=== PATIENT | male | born 1945 | race African-American/Black ===

== ENCOUNTER 2016-03-18 15:05 | Inpatient (IN) | payer MEDICARE, OTHER ==
[~2016-03-18] VITALS: Ht 165.1 cm; Wt 134.1 kg
[~2016-03-18 15:05] MED LIST: ACTOS 45MG45 MG/TAB PO; AMARYL4 MG PO; ANUSOL-HC SUPPO25 MG RC; ASPI325T6 PO; ASPIRIN E.C. 8181 MG PO; CIALIS20 MG PO; FERROUS SU325 MG/TAB PO; FIBERCON PO; FOLIC ACID 40400 MCG PO; HCTZ 25MG TAB25 MG PO; JANUVIA 100MG100 MG PO; LANTUS SOLOS100 U/ML SQ; LIPITOR 40MG TA40 MG PO; LYRICA 100MG C100 M1 PO; MULTIVITAMIN PO; NEXIUM 40MG40 MG PO; NORCO 325 MG-7.1 TAB PO; PRECOSE50 MG; SENOKOT S 50 MG1 TAB PO; VICTOZA6 MG/ML SC; VITAMIN C500 MG PO; XALATAN EYE DROPS OU; ZESTRIL40 MG PO
[2016-06-07] VITALS (12 sets, daily range): BP systolic 99–137; BP diastolic 51–82; PULSE 74–90; TEMP 97.5–98.5
[2016-06-08 00:20] VITALS: BP 104/50; PULSE 64; TEMP 98.2
[2016-06-08 03:53] VITALS: BP 123/48; PULSE 63; TEMP 98.2
[2016-06-08 07:13] LABS: HEMATOCRIT 32.2 % (42.0-52.0); HEMOGLOBIN 10.4 g/dl (13.5-18.0)
[2016-06-08 07:46] VITALS: BP 124/50; PULSE 100; TEMP 99.3
[2016-06-08 11:29] VITALS: BP 141/69; PULSE 98; TEMP 98.2
[2016-06-08 15:53] VITALS: BP 108/66; PULSE 92; TEMP 98.2
[2016-06-08 19:49] VITALS: BP 112/50; PULSE 89; TEMP 98.4
[2016-06-09 00:08] VITALS: BP 131/71; PULSE 98; TEMP 98.6
[2016-06-09 04:22] VITALS: BP 152/81; PULSE 105; TEMP 99
[2016-06-09 06:47] LABS: HEMATOCRIT 32.7 % (42.0-52.0); HEMOGLOBIN 10.5 g/dl (13.5-18.0)
[2016-06-09 07:42] VITALS: BP 127/63; PULSE 95; TEMP 98.1
[2016-06-09 12:09] VITALS: BP 123/65; PULSE 102; TEMP 98
[2016-06-09 16:03] VITALS: BP 112/68; PULSE 90; TEMP 98.9
[2016-06-09 19:37] VITALS: BP 119/49; PULSE 64; TEMP 98.2
[2016-06-10 00:27] VITALS: BP 126/54; PULSE 72; TEMP 98
[2016-06-10 04:30] VITALS: BP 108/60; PULSE 70; TEMP 98.2
[2016-06-10] MEDS ORDERED: NORCO 325 MG-7.1 TAB PO (06:56)
[2016-06-10] MEDS ORDERED: TYLENOL 500MG500 MG PO (06:57)
[2016-06-10] MEDS ORDERED: COLACE 100100 MG/CAP PO (06:59)
[2016-06-10 07:36] VITALS: BP 123/53; PULSE 97; TEMP 98.4
[2016-06-10 08:02] LABS: HEMATOCRIT 30.6 % (42.0-52.0)
[2016-06-10 11:24] VITALS: BP 100/54; PULSE 95; TEMP 97
== END 2016-06-10 14:30 | disposition home or self-care (01) | DRG 470 ==
LOC: INPTSU 06-07 07:00 → JCC 06-07 07:24
PROVIDERS: Orthopaedic Surgery
PROC: 0SRD0J9 Replacement of Left Knee Joint with Synthetic Substitute, Cemented, Open Approach (ICD-10-PCS; principal; 2016-06-07 09:00)
DX: M17.12 Unilateral primary osteoarthritis, left knee (principal); E11.9 Type 2 diabetes mellitus without complications; I10 Essential (primary) hypertension
CPT/HCPCS: A4315; A9284; C1713; C1776; J2250; J2405; J2704; J3010; J7030

== ENCOUNTER → 2016-05-21 | Outpatient (CLI) | payer MEDICARE, OTHER ==
[~2016-05-21] MED LIST changes: +COLACE 100100 MG/CAP PO; +TYLENOL 500MG500 MG PO; +XARELTO15 MG PO
== END ==
LOC: COL.LAB 11:22
DX: Z01.812 Encounter for preprocedural laboratory examination (principal); M25.862 Other specified joint disorders, left knee

== ENCOUNTER 2016-06-18 15:15 | Emergency (ER) | payer MEDICARE, OTHER ==
[2005-08-25 06:23] VITALS: BP 125/75
[~2016-06-18] VITALS: Ht 165.1 cm; Wt 127.3 kg
[~2016-06-18 15:15] MED LIST changes: -XARELTO15 MG PO
[2016-06-18 15:24] VITALS: BP 104/63; TEMP 98.2
[2016-06-18] MEDS ORDERED: XARELTO15 MG PO (16:13)
[2016-06-18 16:52] VITALS: PULSE 82
[2016-06-18 17:08] LABS: INR 1.2 (0.8-3.0); PROTHROMBIN TIME 13.6 SECONDS (9.7-12.8)
== END 2016-06-18 16:52 | disposition home or self-care (01) ==
LOC: COL.ER 15:15
PROVIDERS: Emergency Medicine
DX: I97.89 Other postprocedural complications and disorders of the circulatory system, not elsewhere classified (principal); I82.4Z2 Acute embolism and thrombosis of unspecified deep veins of left distal lower extremity; Z79.01 Long term (current) use of anticoagulants; Z96.652 Presence of left artificial knee joint; E11.9 Type 2 diabetes mellitus without complications; I10 Essential (primary) hypertension; Z79.4 Long term (current) use of insulin

== ENCOUNTER → 2016-06-18 | Outpatient (CLI) | payer MEDICARE, OTHER | LOC: COL.RAD 13:45 | DX: I82.4Z2 Acute embolism and thrombosis of unspecified deep veins of left distal lower extremity (principal); M79.662 Pain in left lower leg; M79.89 Other specified soft tissue disorders; Z98.890 Other specified postprocedural states ==